=== PATIENT | female | born 1990 | race Caucasian/White ===

== ENCOUNTER 2021-10-30 06:30 | Outpatient (REF) | payer BC, SELFPAY ==
--- NOTE | ~2021-10-30 | XR_ITS ---
EXAMINATION: XR LUMBOSACRAL SPINE CLINICAL INFORMATION: Low back pain. COMPARISON: None. TECHNIQUE: 3 views of the lumbosacral spine. FINDINGS: Normal lordosis is maintained. No significant scoliosis. The SI joints are grossly patent. The vertebral heights and disc heights are well maintained. No suspicious bony finding. No evidence of degenerative changes. Some mild loss of anterior height at superior D12 may represent a small Schmorl's node XR/XR lumbar spine 2-3V IMPRESSION: No lumbar sacral bony finding. Alignment within normal limits.
[2021-10-30 06:44] LABS: MANUAL DIFF FLAG NO
[2021-10-30 07:09] LABS: Basophils Absolute Auto 0.1 X10*3/uL (0.0-0.2); Basophils Percent Auto 0.9 % (0-2); Eosinophils Absolute Auto 0.1 X10*3/uL (0.0-0.4); Eosinophils Percent Auto 2.1 % (0-4); Hematocrit 41.4 % (37.0-47.0); Hemoglobin 14.5 g/dl (12.0-16.0); Imm Gran Abs Auto 0.02 X10*3/uL (0.00-0.03); Imm Gran Pct Auto 0.3 % (0.0-0.4); Lymphocytes Absolute Auto 2.3 X10*3/uL (1.2-4.9); Lymphocytes Percent Auto 39.3 % (20-40); Mean Corpuscular Hemoglobin 30.7 pg (27.0-33.0); Mean Corpuscular Volume 87.7 fL (80.0-98.0); Mean Platelet Volume 11.8 fL (9.4-12.3); Monocytes Absolute Auto 0.4 X10*3/uL (0.1-1.2); Monocytes Percent Auto 6.2 % (2-11); Neutrophils Percent Auto 51.2 % (45-73); Platelet Count 222 X10*3/uL (160-400); Red Blood Count 4.72 X10*6/uL (4.20-5.50); White Blood Count 5.8 X10*3/uL (4.8-10.8)
[2021-10-30 07:37] LABS: Alanine Aminotransferase 18 U/L (0-31); Albumin Level 3.9 g/dL (3.5-5.0); Alkaline Phosphatase 80 U/L (39-117); Anion Gap 11 (12-20); Aspartate Amino Transferase 18 U/L (5-31); Bilirubin Total 0.6 mg/dL (0.0-1.0); Blood Urea Nitrogen 8 mg/dL (9-16); Carbon Dioxide 24 mmol/L (22-29); Chloride 108 mmol/L (96-108); Cholesterol 180 mg/dL; Estimated Glomerular Filt Rate > 60; Glucose Fasting 91 mg/dL (60-99); HDL Cholesterol 58 mg/dL; LDL Cholesterol Calculated 100 mg/dl; Potassium 4.3 mmol/L (3.3-5.1); Sodium 139 mmol/L (135-145); Total Protein 6.8 g/dL (6.5-8.0); Triglycerides 112 mg/dL
[2021-10-30 07:49] LABS: TSH reflex Free T4 2.21 uIU/mL (0.32-4.0)
== END 2021-10-30 06:31 | disposition home or self-care (01) ==
LOC: HO.LAB 06:30
PROVIDERS: Nurse Practitioner Family; PCP Nurse Practitioner Acute Care; Visit Provider Nurse Practitioner Acute Care
DX: Z00.00 Encounter for general adult medical examination without abnormal findings (principal); M54.50 Low back pain, unspecified
CPT/HCPCS: 36415; 72100; 80053; 80061; 84443; 85025

== ENCOUNTER 2021-12-22 09:29 | Outpatient (REF) | payer BC, SELFPAY ==
[2021-12-22 10:00] LABS: MANUAL DIFF FLAG NO
[2021-12-22 10:48] LABS: Basophils Percent Auto 0.7 % (0-2); Eosinophils Absolute Auto 0.1 X10*3/uL (0.0-0.4); Eosinophils Percent Auto 1.2 % (0-4); Hematocrit 41.7 % (37.0-47.0); Hemoglobin 14.2 g/dl (12.0-16.0); Imm Gran Abs Auto 0.01 X10*3/uL (0.00-0.03); Imm Gran Pct Auto 0.2 % (0.0-0.4); Lymphocytes Absolute Auto 1.7 X10*3/uL (1.2-4.9); Lymphocytes Percent Auto 39.1 % (20-40); Mean Corpuscular HGB Conc 34.1 g/dl (31.0-35.0); Mean Corpuscular Hemoglobin 30.3 pg (27.0-33.0); Mean Corpuscular Volume 88.9 fL (80.0-98.0); Mean Platelet Volume 12.2 fL (9.4-12.3); Monocytes Absolute Auto 0.3 X10*3/uL (0.1-1.2); Monocytes Percent Auto 6.4 % (2-11); Neutrophils Absolute Auto 2.2 x10*3/uL (2.0-8.3); Neutrophils Percent Auto 52.4 % (45-73); Platelet Count 220 X10*3/uL (160-400); Red Blood Count 4.69 X10*6/uL (4.20-5.50); Red Cell Distribution Width 12.4 % (11.0-16.0); White Blood Count 4.3 X10*3/uL (4.8-10.8)
[2021-12-22 10:59] LABS: Estimated Average Glucose 85 mg/dL; Hemoglobin A1c % 4.6 %
[2021-12-22 11:00] LABS: Alanine Aminotransferase 25 U/L (0-31); Albumin Level 4.1 g/dL (3.5-5.0); Alkaline Phosphatase 71 U/L (39-117); Anion Gap 12 (12-20); Aspartate Amino Transferase 22 U/L (5-31); Bilirubin Total 0.4 mg/dL (0.0-1.0); Blood Urea Nitrogen 8 mg/dL (9-16); Calcium 9.3 mg/dL (8.4-10.2); Carbon Dioxide 24 mmol/L (22-29); Chloride 107 mmol/L (96-108); Cholesterol 171 mg/dL; Estimated Glomerular Filt Rate > 60; Glucose Fasting 87 mg/dL (60-99); HDL Cholesterol 58 mg/dL; LDL Cholesterol Calculated 89 mg/dl; Potassium 4.7 mmol/L (3.3-5.1); Sodium 138 mmol/L (135-145); Triglycerides 121 mg/dL
[2021-12-22 11:22] LABS: TSH reflex Free T4 1.23 uIU/mL (0.32-4.0)
[2021-12-22 11:40] LABS: Folate 15.4 ng/mL (> or = 4.0); Vitamin B12 627 pg/mL (200-900)
[2021-12-26 13:41] LABS: Vitamin D 25-OH, D2 <4 ng/mL; Vitamin D 25-OH, D3 19 ng/mL; Vitamin D 25-OH, Total 19 ng/mL (30-100)
[2021-12-27 00:37] LABS: HLA B27 Negative (Negative)
== END 2021-12-22 09:30 | disposition home or self-care (01) ==
LOC: HO.LAB 09:29
PROVIDERS: Visit Provider Nurse Practitioner Acute Care
DX: Z00.00 Encounter for general adult medical examination without abnormal findings (principal); M51.46 Schmorl's nodes, lumbar region
CPT/HCPCS: 36415; 80053; 80061; 82306; 82607; 82746; 83036; 84443; 85025; 86812

== ENCOUNTER 2021-12-27 07:42 | Outpatient (REF) | payer BC, SELFPAY ==
[2021-12-27 09:25] LABS: C Reactive Protein 0.22 mg/dL (< or = 0.50)
[2021-12-27 09:29] LABS: Rheumatoid Factor < 15.0 IU/mL (<15.0)
[2021-12-27 09:42] LABS: Erythrocyte Sedimentation Rate 2 MM/HR (0-20)
== END 2021-12-27 07:43 | disposition home or self-care (01) ==
LOC: HO.LAB 07:42
PROVIDERS: Visit Provider Nurse Practitioner Acute Care
DX: M25.50 Pain in unspecified joint (principal)
CPT/HCPCS: 36415; 85652; 86140; 86431

== ENCOUNTER 2022-01-09 08:00 | Outpatient (RCR) | payer BC, SELFPAY | END 2022-01-09 09:32 | disposition home or self-care (01) | LOC: HO.PTCHIC 08:00 | PROVIDERS: PCP Nurse Practitioner Acute Care; Visit Provider Nurse Practitioner Acute Care | DX: M54.50 Low back pain, unspecified (principal); M25.562 Pain in left knee | CPT/HCPCS: 97110; 97140; 97161 ==

== ENCOUNTER 2022-01-21 20:21 | Emergency (ER) | payer BC, SELFPAY ==
[2022-01-21 22:05] VITALS: BP 133/79; PULSE 68; RESP 17; TEMP 36.8; O2SAT 98; BMI 25.2
--- NOTE | 2022-01-22 00:39 | ED.WOUNDLAC ---
HPI - Wound/Laceration General Chief Complaint: Wound/Laceration Stated Complaint: right thumb lacertion Source: patient Mode of arrival: ambulatory Limitations: no limitations History of Present Illness HPI narrative: 31 yold female presents for right tunmb laceration caused by top of mae can. patient states laceration is very superficial, but would not stop bleeding. Patient states uptodate with tetanus. patient has complete ranfe of motion of finger and no numbness/tingling. Related Data Home Medications Medication Instructions Recorded Confirmed nystatin 100,000 unit/gram topical TOPICAL 09/19/20 12/23/21 cream vitamin B complex (B 1 tab PO DAILY 09/19/20 12/23/21 Complex-Vitamin B12) Previous Rx's Medication Instructions Recorded mupirocin 2 % ointment topical kit 1 appl TOPICAL BID #1 ea 10/28/21 oxymetazoline 1 % topical cream 1 appl TOPICAL DAILY #30 g 11/12/21 ivermectin 1 % topical cream 1 appl TOPICAL DAILY #45 g 12/23/21 sumatriptan succinate 25 mg tablet See Rx Instructions PO .COMPLEX 12/23/21 (Imitrex) #14 tab cholecalciferol (vitamin D3) 125 125 mcg PO DAILY #30 cap 12/26/21 mcg (5,000 unit) capsule (Dialyvite Vitamin D) Allergies Allergy/AdvReac Type Severity Reaction Status Date / Time No Known Allergies Allergy Verified 01/21/22 22:03 Review of Systems Review of Systems: right thumb laceration Yes all other systems are reviewed and are negative PMFSH Past Medical History Medical History Left anterior knee pain Lower back pain Physical exam Rosacea, acne Surgical History History of section Family History Family History Father Heart failure Liver cancer Mother No problems noted. Social History Social History Housing: House Patient Tobacco Use Status: Never used Tobacco Tobacco use type: Cigarette e-Cigarette/Vaping Use: Never Used Second Hand Smoke Exposure: No Advance Directives: No Current occupational status: employed Cognitive needs: No Hearing needs: No Vision needs: No Physical Exam Vital Signs: Vital Signs: Last Vital Signs Temp 98.3 F 01/21/22 22:05 Pulse 68 01/21/22 22:05 Resp 17 01/21/22 22:05 BP 133/79 01/21/22 22:05 Pulse Ox 98 01/21/22 22:05 BMI result Body Mass Index 25.2 Const: General: cooperative, healthy appearing, comfortable, no acute distress, well developed, alert, awake and Physically active Orientation/consciousness: oriented to time and patient oriented x3 HEENT: Head: Yes normal to inspection, Yes No palpable skull fracture present, Yes normocephalic, Yes atraumatic and No abrasion Eyes: General: appearance normal, both eyes and all related structures Neck: Neck: Yes normal visual inspection, Yes full ROM, Yes no lymphadenopathy, Yes no meningeal signs, Yes trachea midline, Yes supple, No anterior neck swelling and No tender Chest: Chest palpation & inspection: normal inspection of the chest and normal palpation of entire chest wall Resp: Effort & Inspection: normal respiratory effort and able to speak in complete sentences Auscultation: clear to auscultation bilaterally Cardio: Jugular venous distension: no JVD Heart sounds: S1 normal heart sound present and S2 normal heart sound present GI: Inspection: Yes normal to inspection and No abdominal wall ecchymosis Palpation (GI): Soft to palpation, not firm, nontender, no guarding and not rigid : General: No CVA tenderness and Yes no CVA tenderness Back/Spine/Pelvis: Back: no CVA tenderness, No CVA tenderness and No back tenderness Skin: General skin exam: no rashes or lesions noted and elasticity normal Neuro: General: oriented to time, patient oriented x3, gait normal, tone normal, moves all extremities, no meningeal signs, no focal motor deficits and CN's II-XI intact bilaterally Extrem: General: Yes normal to inspection and Yes full ROM Hand/finger images: 1. Small laceration. Minimal bleeding. Complete range of motion of thumb. Negative for signs of tendon/nerve injury. Capillary refill is intact. Motor/neuro/vascular exam of extremity intact. Negative for ecchymosis Psych: Appearance: grossly normal, well kempt and not disheveled Course Course Course Narrative: Linear wound clean Reevaluation(s) Reevaluation #1: No need for suture repair. Wound cleaned. Dermabond use close wound Time: 00:48 MDM - Wound/Laceration MDM Narrative Medical decision making narrative: laceration Discharge Plan Discharge Clinical Impression: Laceration Patient Disposition: Home, Self-Care Instructions: Laceration (ED), Skin Adhesive Care (ED) Additional Instructions: Return to the ED immediately for any redness, swelling, pus discharge, foul odor, bluish black discoloration, or any other concerning symptoms. Please follow-up with primary care provider. Prescriptions: No Action oxymetazoline 1 % cream 1 appl topical DAILY Qty: 30 0RF ivermectin 1 % cream 1 appl topical DAILY Qty: 45 0RF cholecalciferol (vitamin D3) [Dialyvite Vitamin D] 125 mcg (5,000 unit) capsule 125 mcg PO DAILY Qty: 30 2RF nystatin 100,000 unit/gram cream topical 0RF vitamin B complex [B Complex-Vitamin B12] Tablet 1 tab PO DAILY 0RF mupirocin 2 % ointment kit 1 appl topical BID Qty: 1 0RF sumatriptan succinate [Imitrex] 25 mg tablet See Rx Instructions PO .COMPLEX Qty: 14 0RF Rx Instructions: take 1 tab at onset of headache; if no relief may repeat 1 tab after at least 2 hrs; max = 4 tabs/24 hr PO Print Language: Albanian
== END 2022-01-22 01:15 | disposition home or self-care (01) ==
PROVIDERS: Emergency Provider Student in an Organized Health Care Education/Training Program
DX: S61.011A Laceration without foreign body of right thumb without damage to nail, initial encounter (principal); W26.8XXA Contact with other sharp object(s), not elsewhere classified, initial encounter; Y93.9 Activity, unspecified; Y92.000 Kitchen of unspecified non-institutional (private) residence as the place of occurrence of the external cause; Y99.9 Unspecified external cause status
CPT/HCPCS: 99283

== ENCOUNTER 2023-01-07 18:18 | Outpatient (REF) | payer BC, SELFPAY ==
--- NOTE | ~2023-01-07 | MR_ITS ---
EXAMINATION: MR LUMBAR SPINE WITHOUT CONTRAST CLINICAL INFORMATION: Low back pain. Left leg radiculopathy. COMPARISON: None available. TECHNIQUE: Multiplanar, multisequence imaging was obtained. FINDINGS: VERTEBRAL BODIES AND PARASPINAL STRUCTURES: The marrow signal is homogeneous. Scattered endplate Schmorl's nodes present. There is a slight retrosubluxation and reduced intradiscal signal at the L4-L5 level. There is a moderate loss of disc height with a retrosubluxation at the L5-S1 level. Minimal endplate edematous changes also visible. The remaining discs are well-hydrated. The paraspinal soft tissues are normal. There is nonspecific prominence of the collecting systems, however, the ureters are not dilated. The imaged bony pelvis appears normal. CONUS MEDULLARIS AND CAUDA EQUINA: The distal cord, conus tip, and cauda equina nerve roots are normal. SPINAL LEVELS: L1-L2: Minimal annular bulge, endplate Schmorl's nodes, and mild facet arthropathy. No central canal stenosis or foraminal narrowing. L2-L3: No disc pathology, central canal stenosis, or foraminal narrowing. L3-L4: Mild facet arthropathy. No disc abnormality. No central canal stenosis or foraminal narrowing. L4-L5: Reduced intradiscal signal and small annular fissure in the midline. Mild disc bulge and mild facet arthropathy without central canal stenosis or foraminal narrowing. L5-S1: Disc degeneration and large central disc extrusion compressing both S1 nerve roots, left greater than right side and distorting the ventral thecal sac. The disc extrusion migrates superiorly into the left lateral recess of L5 near the superior endplate with severe compression of the left L5 nerve root. The disc extrusion measures up to 2.8 cm CC by 1 cm AP by 1.7 cm TV. Mild facet arthropathy. Moderate to severe left foraminal narrowing with bulging disc and osseous spurring contacting the exiting left L5 nerve root. MR/MR lumbar spine wo con IMPRESSION: Large central disc extrusion at the L5-S1 level distorting the ventral thecal sac and compressing both S1 nerve roots, more so on the left side. Disc extrusion migrates superiorly into the left lateral recess of the L5 with severe compression of the left L5 nerve root. Moderate to severe left foraminal narrowing with bulging disc and osseous spurring contacting the exiting left L5 nerve root.
== END 2023-01-07 18:19 | disposition home or self-care (01) ==
LOC: HO.MRI 18:18
PROVIDERS: PCP Nurse Practitioner Family; Visit Provider Nurse Practitioner Family
DX: M54.50 Low back pain, unspecified (principal); M51.17 Intervertebral disc disorders with radiculopathy, lumbosacral region
CPT/HCPCS: 72148

== ENCOUNTER → 2023-02-19 14:27 | Outpatient (BNVA) | payer BC, SELFPAY | PROVIDERS: PCP Nurse Practitioner Family; Visit Provider Physician Assistant ==

== ENCOUNTER 2023-02-23 08:06 | Outpatient (REF) | payer BC, SELFPAY ==
[2023-02-23 09:33] LABS: Alanine Aminotransferase 14 U/L (0-31); Albumin Level 3.9 g/dL (3.5-5.0); Alkaline Phosphatase 61 U/L (39-117); Anion Gap 9 (12-20); Aspartate Amino Transferase 17 U/L (5-31); Bilirubin Total 0.8 mg/dL (0.0-1.0); Blood Urea Nitrogen 8 mg/dL (9-16); Carbon Dioxide 27 mmol/L (22-29); Chloride 108 mmol/L (96-108); Cholesterol 118 mg/dL; Estimated Glomerular Filt Rate > 60; Glucose Fasting 86 mg/dL (60-99); HDL Cholesterol 44 mg/dL; LDL Cholesterol Calculated 64 mg/dl; Potassium 4.3 mmol/L (3.3-5.1); Sodium 140 mmol/L (135-145); Total Protein 5.8 g/dL (6.5-8.0); Triglycerides 50 mg/dL
[2023-02-23 10:03] LABS: Folate 11.9 ng/mL (> or = 4.0); TSH reflex Free T4 1.19 uIU/mL (0.32-4.0); Vitamin B12 450 pg/mL (200-900); Vitamin D 25-OH Total 15.8 ng/mL (>30)
== END 2023-02-23 08:07 | disposition home or self-care (01) ==
LOC: HO.LAB 08:06
PROVIDERS: PCP Nurse Practitioner Family; Visit Provider Nurse Practitioner Family
DX: G43.009 Migraine without aura, not intractable, without status migrainosus (principal); E55.9 Vitamin D deficiency, unspecified; F41.1 Generalized anxiety disorder; M25.50 Pain in unspecified joint
CPT/HCPCS: 36415; 80053; 80061; 82306; 82607; 82746; 84443

== ENCOUNTER 2023-02-25 14:25 | Outpatient (REF) | payer BC, SELFPAY ==
[2023-02-25 14:41] LABS: MANUAL DIFF FLAG NO
[2023-02-25 15:28] LABS: Basophils Absolute Auto 0.1 X10*3/uL (0.0-0.2); Basophils Percent Auto 0.9 % (0-2); Eosinophils Absolute Auto 0.2 X10*3/uL (0.0-0.4); Eosinophils Percent Auto 2.8 % (0-4); Hematocrit 42.3 % (37.0-47.0); Hemoglobin 14.4 g/dl (12.0-16.0); Imm Gran Abs Auto 0.02 X10*3/uL (0.00-0.03); Imm Gran Pct Auto 0.4 % (0.0-0.4); Lymphocytes Absolute Auto 1.7 X10*3/uL (1.2-4.9); Lymphocytes Percent Auto 32.8 % (20-40); Mean Corpuscular Hemoglobin 30.4 pg (27.0-33.0); Mean Corpuscular Volume 89.4 fL (80.0-98.0); Mean Platelet Volume 12.5 fL (9.4-12.3); Monocytes Absolute Auto 0.4 X10*3/uL (0.1-1.2); Monocytes Percent Auto 8.1 % (2-11); Neutrophils Absolute Auto 2.9 x10*3/uL (2.0-8.3); Platelet Count 205 X10*3/uL (160-400); Red Blood Count 4.73 X10*6/uL (4.20-5.50); White Blood Count 5.3 X10*3/uL (4.8-10.8)
[2023-02-25 15:54] LABS: Lipase 15 U/L (8-78)
== END 2023-02-25 14:26 | disposition home or self-care (01) ==
LOC: HO.LAB 14:25
PROVIDERS: PCP Nurse Practitioner Family; Visit Provider Nurse Practitioner Family
DX: R10.12 Left upper quadrant pain (principal)
CPT/HCPCS: 36415; 83690; 85025

== ENCOUNTER 2023-03-19 08:52 | Outpatient (REF) | payer BC, SELFPAY ==
--- NOTE | ~2023-03-19 | US_ITS ---
EXAMINATION: US ABDOMEN LIMITED CLINICAL INFORMATION: Left upper quadrant pain. COMPARISON: None available. TECHNIQUE: Real-time imaging of the spleen and left kidney. FINDINGS: LEFT KIDNEY: Normal. No hydronephrosis. No renal calculi or focal parenchymal lesions. The kidney measures 11.0 cm in maximum dimension. SPLEEN: Normal. The spleen measures 10.0 cm in maximum dimension. ADDITIONAL FINDINGS: Tiny 4 mm area of increased echogenicity without internal vascularity the rectus abdominis musculature potentially reflect a tiny intramuscular lipoma or fatty degeneration. US/US abdomen limited IMPRESSION: 1. Normal sonographic appearance of the spleen and left kidney. 2. Tiny 4 mm area of increased echogenicity without internal vascularity the rectus abdominis musculature potentially reflect a tiny intramuscular lipoma or fatty degeneration.
== END 2023-03-19 08:53 | disposition home or self-care (01) ==
LOC: HO.US 08:52
PROVIDERS: Visit Provider Nurse Practitioner Family
DX: R10.12 Left upper quadrant pain (principal)
CPT/HCPCS: 76705

== ENCOUNTER 2023-06-09 07:57 | Outpatient (REF) | payer BC, SELFPAY ==
[2023-06-09 08:10] LABS: MANUAL DIFF FLAG NO
[2023-06-09 08:42] LABS: Basophils Percent Auto 0.7 % (0-2); Eosinophils Absolute Auto 0.1 X10*3/uL (0.0-0.4); Eosinophils Percent Auto 2.9 % (0-4); Hematocrit 41.1 % (37.0-47.0); Hemoglobin 14.2 g/dl (12.0-16.0); Imm Gran Abs Auto 0.02 X10*3/uL (0.00-0.03); Imm Gran Pct Auto 0.5 % (0.0-0.4); Lymphocytes Absolute Auto 1.6 X10*3/uL (1.2-4.9); Lymphocytes Percent Auto 38.7 % (20-40); Mean Corpuscular HGB Conc 34.5 g/dl (31.0-35.0); Mean Corpuscular Hemoglobin 30.6 pg (27.0-33.0); Mean Corpuscular Volume 88.6 fL (80.0-98.0); Mean Platelet Volume 12.3 fL (9.4-12.3); Monocytes Absolute Auto 0.3 X10*3/uL (0.1-1.2); Monocytes Percent Auto 7.8 % (2-11); Neutrophils Percent Auto 49.4 % (45-73); Platelet Count 182 X10*3/uL (160-400); Red Blood Count 4.64 X10*6/uL (4.20-5.50); Red Cell Distribution Width 12.6 % (11.0-16.0); White Blood Count 4.1 X10*3/uL (4.8-10.8)
[2023-06-09 09:24] LABS: Vitamin D 25-OH Total 44.8 ng/mL (>30)
== END 2023-06-09 07:58 | disposition home or self-care (01) ==
LOC: HO.LAB 07:57
PROVIDERS: PCP Nurse Practitioner Family; Visit Provider Nurse Practitioner Family
DX: G43.009 Migraine without aura, not intractable, without status migrainosus (principal); E55.9 Vitamin D deficiency, unspecified; D17.1 Benign lipomatous neoplasm of skin and subcutaneous tissue of trunk
CPT/HCPCS: 36415; 82306; 85025

== ENCOUNTER 2023-06-09 08:17 | Outpatient (AMB) | payer BC, SELFPAY ==
--- NOTE | 2023-06-09 08:28 | A.OFFVIS_ITS ---
Intake Vital Signs 06/09/23 08:36 Height 5 ft 7 in Weight 132 lb BMI 20.7 BP 103/64 Blood Pressure Location Rt brachial Position Sitting Pulse 59 Intake Visit Reasons: Benign lipomatous neoplasm, unspecified Intake Note: This patient presents for an assessment for lipoma. Patient c/o; reports occasional discomfort on the LUQ under rib cage, reports having Ultrasound which showed a fatty deposit per patient. Vp Construction Required: No Accompanied by: Self / Same As Patient Allergies No Known Allergies Allergy (Verified 06/09/23 08:34) Medication List - Last Reconciled 06/09/23 by Venkat Smith MD cholecalciferol (vitamin D3) (Dialyvite Vitamin D) 125 mcg PO DAILY ibuprofen 600 mg PO Q8H PRN ivermectin 1% 1 appl topical DAILY sumatriptan succinate (Imitrex) take 1 tab at onset of headache; if no relief may repeat 1 tab after at least 2 hrs; max = 4 tabs/24 hr PO vitamin B complex (B Complex-Vitamin B12 tablet) 1 tab PO DAILY HPI Benign lipomatous neoplasm, unspecified HPI Details [age] year old female referred for a lipoma. She had complained of pain on the left subcostal area her primary care physician. She was sent for an ultrasound and this showed a small 4 mm lipoma in the rectus. She does not feel any masses. She says she does not seem to have significant pain at this time She denies any GI complaints. [facility] Medical History (Updated 06/09/23 @ 08:56 by Venkat Smith MD) Encounter to establish care Left anterior knee pain Lipoma of abdominal wall Lower back pain Physical exam Rosacea, acne Surgical History History of section Family History Father Heart failure Liver cancer Mother No problems noted. Social History Housing: House Patient Tobacco Use Status: Never used Tobacco Tobacco use type: Cigarette e-Cigarette/Vaping Use: Never Used Second Hand Smoke Exposure: No Current occupational status: employed Cognitive needs: No Hearing needs: No Vision needs: No Review of Systems Const Denies chills and Denies fever(s) Card Denies chest pain, Denies dyspnea and Denies dyspnea on exertion Resp Denies cough, Denies dyspnea and Denies dyspnea on exertion GI Denies hematochezia and Denies change in bowel habits Denies hematuria Musc Reports back pain and Denies limited range of motion Neuro Denies focal weakness and Denies convulsions Psych Denies depression and Denies mood swings Physical Exam Vital Signs: Last Vital Signs Pulse 59 06/09/23 08:36 BP 103/64 06/09/23 08:36 BMI result Body Mass Index 20.7 Const General: comfortable and no acute distress Orientation/consciousness: patient oriented x3 Neck Neck: Yes no lymphadenopathy Resp Auscultation: clear to auscultation bilaterally Cardio Rhythm: regular rhythm GI Other: No palpable abdominal masses Palpation (GI): Soft to palpation, nontender and no guarding Neuro General: patient oriented x3 Assessment & Plan Assessment & Plan (1) Lipoma of abdominal wall: Code(s): D17.1 - Benign lipomatous neoplasm of skin and subcutaneous tissue of trunk Plan: I have reviewed her ultrasound. This shows a small 4 mm lipomatous mass in the rectus. This is nonpalpable. This does not seem to be tender at this time. I explained to her that currently does not appear that she will benefit from excision in view of the very small size. The lipoma is actually not palpable at all I did explain to her that if she feels any lump that seems to be increasing in size on the area, she can come back to the office to be re-evaluated for possible excision. Coding Level of Care Code New Pt Level 3 (75511) Diagnoses Lipoma of abdominal wall D17.1
[2023-06-09 08:36] VITALS: BP 103/64; PULSE 59; BMI 20.7
== END 2023-06-09 08:55 | disposition home or self-care (01) ==
PROVIDERS: PCP Nurse Practitioner Family; Referring Provider Nurse Practitioner Family; Visit Provider Surgery
DX: D17.1 Benign lipomatous neoplasm of skin and subcutaneous tissue of trunk (principal)
CPT/HCPCS: 99203

== ENCOUNTER 2023-08-27 10:03 | Outpatient (AMB) | payer BC, SELFPAY ==
[2023-08-27 10:04] VITALS: BP 118/66; PULSE 55; O2SAT 100; BMI 21.5
--- NOTE | 2023-08-27 10:04 | A.OFFPC_ITS ---
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 Allergies No Known Allergies Allergy (Verified 08/27/23 10:11) Medication List - Last Reconciled 08/27/23 by KAILYN Garcia cholecalciferol (vitamin D3) (Dialyvite Vitamin D) 125 mcg PO DAILY ibuprofen 600 mg PO Q8H PRN ivermectin 1% 1 appl topical DAILY sumatriptan succinate (Imitrex) take 1 tab at onset of headache; if no relief may repeat 1 tab after at least 2 hrs; max = 4 tabs/24 hr PO vitamin B complex (B Complex-Vitamin B12 tablet) 1 tab PO DAILY Tobacco use date assessed: 08/27/23 Dental Screening Dental Screen Date: 08/27/23 Did you have a dental visit in the last 12 months?: Yes Did you have a dental problem in the last 6 months where you did not have access to dental care?: No Was dental information given to patient?: Patient has dentist HPI 6 month f/u HPI Details Patient is a 33-year-old female presents today to follow-up on migraine headache. Medical history significant for low back pain, anxiety-followed by therapist, migraine headache. Patient reports 1 migraine headache every 3-4 months and stable with sumatriptan p.r.n.. No shortness of breath or chest pain. [facility] Medical History Lipoma of abdominal wall Encounter to establish care Left anterior knee pain Rosacea, acne Lower back pain Physical exam Surgical History History of section Family History Father Heart failure Liver cancer Mother No problems noted. Social History Housing: House Patient Tobacco Use Status: Never used Tobacco Tobacco use type: Cigarette e-Cigarette/Vaping Use: Never Used Second Hand Smoke Exposure: No Current occupational status: employed Cognitive needs: No Hearing needs: No Vision needs: No Questionnaire Thrive Questionnaire Date Thrive assessed: 02/25/23 AUDIT C Alcohol Use Questionnaire (AUDIT-C) 1. How often do you have a drink containing alcohol?: Never 3. How often do you have six or more drinks on one occasion?: Never Total Score: 0 Score Reviewed/Action Taken: No RADHA-7 AMB Questionnaire RADHA-7 Date RADHA - 7 assessed: 02/25/23 Source: Developed by Drs. Braden Alvarado, Shraddha Rod, Jerod Smith and colleagues, with an educational nba from [employer] Review of Systems Const Denies body aches, Denies chills, Denies fever(s) and Reports headache(s) (Intermittent) ENT Denies dizziness, Denies otalgia, Reports headache(s) (Intermittent), Denies nasal discharge, Denies sinus pain and Denies sore throat Card Denies chest pain, Denies edema, Denies lightheadedness and Denies dyspnea Resp Denies cough and Denies dyspnea GI Denies abdominal pain Skin/Breast Denies rash Neuro Denies dizziness and Reports headache(s) (Intermittent) Physical exam (Primary Care) Vital Signs: Last Vital Signs Pulse 55 08/27/23 10:04 BP 118/66 08/27/23 10:04 Pulse Ox 100 08/27/23 10:04 Oxygen Delivery Method Room Air 08/27/23 10:04 BMI result Body Mass Index 21.5 Tobacco/Smoking Status: Tobacco use Status Tobacco use date assessed 08/27/23 08/27/23 10:08 Patient Tobacco Use Status Never used Tobacco 08/27/23 10:08 Tobacco use type Cigarette 08/27/23 10:08 e-Cigarette/Vaping Use Never Used 08/27/23 10:08 Thrive Assessment: Date of Thrive Assessment Date Thrive assessed 02/25/23 08/27/23 10:08 Const General: cooperative and no acute distress Orientation/consciousness: patient oriented x3 HENMT Head: Yes normocephalic and Yes atraumatic Throat: Yes posterior oropharynx normal Eyes General: appearance normal, both eyes and all related structures Neck Neck: Yes normal visual inspection and Yes full ROM Resp Effort & Inspection: normal respiratory effort and able to speak in complete sentences Auscultation: clear to auscultation bilaterally, no crackles, no rales, no rhonchi and no wheezes Cardio Rate: regular rate Rhythm: regular rhythm Heart sounds: S1 normal heart sound present and S2 normal heart sound present GI Auscultation: normal bowel sounds Skin General skin exam: no rashes or lesions noted Neuro General: patient oriented x3 Gait exam (Neuro): Normal gait present Extrem General: Yes full ROM and No edema Assessment and Plan Assessment & Plan (1) Anxiety: Code(s): F41.9 - Anxiety disorder, unspecified Plan: Continue to follow-up with therapist (2) Migraine headache without aura: Code(s): G43.009 - Migraine without aura, not intractable, without status migrainosus Qualifiers: Status migrainosus presence: with status migrainosus Intractability: intractable Qualified Code(s): G43.011 - Migraine without aura, intractable, with status migrainosus Plan: Stable with sumatriptan p.r.n. Patient reports 1 migraine headache every 3-4 months Coding Level of Care Code Est Pt Level 3 (38174) Diagnoses Anxiety F41.9 Intractable migraine without aura and with status migrainosus G43.011 Status migrainosus presence: with status migrainosus Intractability: intractable
== END 2023-08-27 10:21 | disposition home or self-care (01) ==
PROVIDERS: Visit Provider Nurse Practitioner Family
DX: F41.9 Anxiety disorder, unspecified (principal); G43.011 Migraine without aura, intractable, with status migrainosus
CPT/HCPCS: 99213

== ENCOUNTER 2024-02-29 08:26 | Outpatient (AMB) | payer BC, SELFPAY ==
--- NOTE | 2024-02-29 08:33 | A.OFFPC_ITS ---
Vital Signs 02/29/24 08:36 Height 5 ft 7 in Weight 138 lb 2 oz BMI 21.6 BP 90/60 Blood Pressure Location Lt brachial Position Sitting Pulse 59 Pulse Source Pulse Oximeter Pulse Oximetry (%) 100 Oxygen Delivery Method Room Air Intake Visit Reasons: PE Intake Note: Patient is here today for a physical. Director Physical Therapy Required: No Ecommerce Marketing Specialist: Not Required per policy Accompanied by: Self / Same As Patient Allergies No Known Allergies Allergy (Verified 02/29/24 08:36) Tobacco use date assessed: 02/29/24 Dental Screening Dental Screen Date: 02/29/24 Did you have a dental visit in the last 12 months?: Yes Did you have a dental problem in the last 6 months where you did not have access to dental care?: No Was dental information given to patient?: Patient has dentist HPI PE HPI Details 33-year-old female presents to the [facility] requesting an annual physical. [facility] Medical History (Updated 02/29/24 @ 09:39 by Palomo Mckeon MD) Migraine headache without aura Lipoma of abdominal wall Encounter to establish care Left anterior knee pain Rosacea, acne Lower back pain Physical exam Surgical History History of section Family History Father Heart failure Liver cancer Mother No problems noted. Social History (Updated 02/29/24 @ 08:40 by Jose Russo Génesis) Housing: House Alcohol intake: current Alcohol intake frequency: a few times a month Patient Tobacco Use Status: Never used Tobacco Tobacco use type: Cigarette e-Cigarette/Vaping Use: Never Used Second Hand Smoke Exposure: No service: No Current occupational status: employed Cognitive needs: No Hearing needs: No Vision needs: No Questionnaire PHQ-9 Over the last 2 weeks, how often have you been bothered by any of the following problems? 1. Little interest or pleasure in doing things: not at all 2. Feeling down, depressed, or hopeless: not at all 3. Trouble falling or staying asleep, or sleeping too much: not at all 4. Feeling tired or having little energy: not at all 5. Poor appetite or overeating: not at all 6. Feeling bad about yourself - or that you are a failure or have let yourself or your family down: not at all 7. Trouble concentrating on things, such as reading the newspaper or watching television: not at all 8. Moving or speaking so slowly that other people could have noticed. Or the opposite - being so fidgety or restless that you have been moving around a lot more than usual: not at all 9. Thoughts that you would be better off or of hurting yourself in some way: not at all Total score: 0 Depression Screening Interpretation: Negative Depression Screening Done: Yes Source: Developed by Drs. Braden Alvarado, Shraddha Rod, Jerod Smith and colleagues, with an educational nba from [employer] (formerly known as [employer]). Thrive Questionnaire Date Thrive assessed: 02/29/24 I am a: Patient What is your living situation today?: I have a steady place to live Within the past 12 months, did the food you bought not last and you didn't have the money to get more?: Never true Within the past 12 months, did you worry whether your food would run out before you got money to buy more?: Never true Do you have trouble paying for medicines?: No Do you have trouble getting transportation to medical appointments?: No Do you have trouble paying your heating and electricity bill?: No Do you have trouble taking care of your child, family member or friend?: No Do you have trouble with day-to-day activities such as bathing, preparing meals, shopping, managing finances, etc.?: No Are you currently unemployed and looking for a job?: No Are you interested in more education?: No Currently or been in a relationship where the following occur: no concerns reported THRIVE Score: 0 AUDIT C Alcohol Use Questionnaire (AUDIT-C) 1. How often do you have a drink containing alcohol?: Never Total Score: 0 RADHA-7 AMB Questionnaire RADHA-7 Date RADHA - 7 assessed: 02/29/24 Feeling nervous, anxious, or on edge: 1 = Several days (has therapist) Not being able to stop or control worryin = Not at all Worrying too much about different things: 0 = Not at all Trouble relaxin = Not at all Being so restless that it is hard to sit still: 0 = Not at all Becoming easily annoyed or irritable: 0 = Not at all Feeling afraid as if something awful might happen: 0 = Not at all Total RADHA-7 score (0-4 normal; 5-9 mild; 10-14 moderate; 15-21 severe): 1 Source: Developed by Drs. Braden Alvarado, Shraddha Rod, Jerod Smith and colleagues, with an educational nba from [employer] (formerly known [employer]). Physical exam (Primary Care) Vital Signs: Last Vital Signs Pulse 59 02/29/24 08:36 BP 90/60 02/29/24 08:36 Pulse Ox 100 02/29/24 08:36 Oxygen Delivery Method Room Air 02/29/24 08:36 BMI result Body Mass Index 21.6 Tobacco/Smoking Status: Tobacco use Status Tobacco use date assessed 02/29/24 02/29/24 08:42 Patient Tobacco Use Status Never used Tobacco 02/29/24 08:40 Tobacco use type Cigarette 02/29/24 08:40 e-Cigarette/Vaping Use Never Used 02/29/24 08:40 PHQ-9: PHQ-9 Score PHQ-9: Total score 0 02/29/24 08:42 Depression Screening Interpretation: Negative Thrive Assessment: Date of Thrive Assessment Date Thrive assessed 02/29/24 02/29/24 08:42 Currently or been in a relationship where the following occur: no concerns repor [place] Const General: cooperative and healthy appearing Nutritional Appearance: well nourished Orientation/consciousness: patient oriented x3 Limitations: no limitations HENMT Head: Yes normal to inspection Eyes General: appearance normal, both eyes and all related structures Neck Neck: Yes normal visual inspection Chest Chest palpation & inspection: normal palpation of entire chest wall Resp Effort & Inspection: normal respiratory effort Neuro General: patient oriented x3 Assessment and Plan Assessment & Plan (1) Annual physical exam: Code(s): Z00.00 - Encounter for general adult medical examination without abnormal findings Plan: Blood work has been ordered. Will call with results. (2) Migraine headache without aura: Code(s): G43.009 - Migraine without aura, not intractable, without status migrainosus Qualifiers: Status migrainosus presence: with status migrainosus Intractability: intractable Qualified Code(s): G43.011 - Migraine without aura, intractable, with status migrainosus Plan: Continue intermittent use of sumatriptan. Coding Level of Care Code Est Pt Prev Care [id number]([id number]) Diagnoses Annual physical exam Z00.00 Intractable migraine without aura and with status migrainosus G43.011 Status migrainosus presence: with status migrainosus Intractability: intractable
[2024-02-29 08:36] VITALS: BP 90/60; PULSE 59; O2SAT 100; BMI 21.6
== END 2024-02-29 09:31 | disposition home or self-care (01) ==
PROVIDERS: PCP Nurse Practitioner Family; Visit Provider Internal Medicine
DX: Z00.00 Encounter for general adult medical examination without abnormal findings (principal); G43.011 Migraine without aura, intractable, with status migrainosus
CPT/HCPCS: 99395

== ENCOUNTER 2024-04-10 06:38 | Outpatient (REF) | payer BC, SELFPAY ==
[2024-04-10 08:26] LABS: Appearance Urine Clear; Color Urine Yellow; Glucose Urine UA Negative (Negative); Leukocyte Esterase Urine Negative (Negative); Nitrite Urine Negative (Negative); PH 5.5 (5.0-9.0); Urine Blood Negative (Negative); Urine Ketones Negative (Negative); Urine Protein Negative (Neg-Trace)
[2024-04-10 08:29] LABS: Hematocrit 42.4 % (37.0-47.0); Hemoglobin 14.3 g/dl (12.0-16.0); Mean Corpuscular HGB Conc 33.7 g/dl (31.0-35.0); Mean Corpuscular Hemoglobin 30.4 pg (27.0-33.0); Mean Corpuscular Volume 90.2 fL (80.0-98.0); Mean Platelet Volume 12.6 fL (9.4-12.3); Platelet Count 197 X10*3/uL (160-400); Red Cell Distribution Width 12.7 % (11.0-16.0); White Blood Count 4.5 X10*3/uL (4.8-10.8)
[2024-04-10 09:15] LABS: Alanine Aminotransferase 14 U/L (0-31); Alkaline Phosphatase 84 U/L (39-117); Anion Gap 9 (12-20); Aspartate Amino Transferase 20 U/L (5-31); Bilirubin Direct 0.1 mg/dL (0.0-0.5); Bilirubin Total 0.3 mg/dL (0.0-1.0); Blood Urea Nitrogen 11 mg/dL (9-16); Calcium 8.7 mg/dL (8.4-10.2); Carbon Dioxide 27 mmol/L (22-29); Chloride 110 mmol/L (96-108); Cholesterol 123 mg/dL (<200); Estimated Glomerular Filt Rate > 60; Glucose Random 81 mg/dL (60-115); HDL Cholesterol 55 mg/dL (>40); LDL Cholesterol Calculated 55 mg/dL (<100); Potassium 4.2 mmol/L (3.3-5.1); Sodium 142 mmol/L (135-145); Total Protein 6.3 g/dL (6.5-8.0); Triglycerides 68 mg/dL (<150)
[2024-04-10 09:31] LABS: Thyroid Stimulating Hormone 1.88 uIU/mL (0.32-4.0)
[2024-04-11 17:53] LABS: Lyme Abs Screen <0.90 index
== END 2024-04-10 06:39 | disposition home or self-care (01) ==
LOC: HO.LAB 06:38
PROVIDERS: PCP Internal Medicine; Visit Provider Internal Medicine
DX: G43.011 Migraine without aura, intractable, with status migrainosus (principal); T14.8XXA Other injury of unspecified body region, initial encounter; W57.XXXA Bitten or stung by nonvenomous insect and other nonvenomous arthropods, initial encounter; Y93.9 Activity, unspecified; Y92.9 Unspecified place or not applicable; Y99.9 Unspecified external cause status
CPT/HCPCS: 36415; 80048; 80061; 80076; 81003; 84443; 85027; 86617; 86618